=== PATIENT | male | born 1955 | race Asian ===

== ENCOUNTER 2017-03-29 15:56 | Emergency (ER) | payer OTHER ==
[2017-03-29 16:01] VITALS: PULSE 87; TEMP 98; BMI 22.8
--- NOTE | 2017-03-29 16:13 | PDOC ---
History of Present Illness - General History Source: Patient Exam Limitations: No Limitations - History of Present Illness Initial Comments: 03/29/17 16:57 Patient is a 61 year old male with a significant past medical history of who presents the ED s/p fall today 1 hours before ED arrival. Patient reports cutting grass today and falling in the yard onto right arm causing immediate pain. Patient reports taking no medication for pain after initial fall. Patient was able to move arm and put ice onto tricep immediately after fall. Denies chest pain, SOB. Denies nausea, vomiting. Denies fever, chills. Denies any other symptoms. Allergies: No allergies Social history: None Surgical history: None PMD: None <Julio Castillo - Last Filed: 03/29/17 18:38> <Keturah Pizarro - Last Filed: 03/30/17 11:58> - General Chief Complaint: Pain, Acute Stated Complaint: right arm pain Time Seen by Provider: 03/29/17 16:02 Past History <Julio Castillo - Last Filed: 03/29/17 18:38> - Past Medical History Anemia: Yes Asthma: No Cancer: No Cardiac Disorders: No CVA: No COPD: No CHF: No Dementia: No Diabetes: No GI Disorders: No Disorders: No HTN: No Hypercholesterolemia: Yes Liver Disease: No Seizures: No Thyroid Disease: No - Surgical History Abdominal Surgery: No Appendectomy: No Cardiac Surgery: No Cholecystectomy: No Lung Surgery: No Neurologic Surgery: No Orthopedic Surgery: No - Suicide/Smoking/Psychosocial Hx Smoking History: Never smoked Have you smoked in the past 12 months: No Hx Alcohol Use: No Drug/Substance Use Hx: No Substance Use Type: None Hx Substance Use Treatment: No <Keturah Pizarro - Last Filed: 03/30/17 11:58> - Past Medical History Allergies/Adverse Reactions: Allergies Allergy/AdvReac Type Severity Reaction Status Date / Time No Known Allergies Allergy Verified 03/29/17 15:57 Home Medications: Ambulatory Orders Ibuprofen [Motrin -] 600 mg PO TID PRN #21 tablet 03/29/17 Oxycodone HCl/Acetaminophen [Percocet 5-325 mg Tablet] 1 tab PO Q6H PRN #12 tablet MDD 4 tabs 03/29/17 Review of Systems - Review of Systems Able to Perform ROS?: Yes Comments:: 03/29/17 16:57 GENERAL/CONSTITUTIONAL: No fever or chills. No weakness. HEAD, EYES, EARS, NOSE AND THROAT: No change in vision. No ear pain or discharge. No sore throat. MUSCULOSKELETAL: + Right tricep pain. No joint or muscle swelling or pain. No neck or back pain. SKIN: No rash NEUROLOGIC: No headache, vertigo, loss of consciousness, or change in strength/ sensation. ENDOCRINE: No increased thirst. No abnormal weight change. HEMATOLOGIC/LYMPHATIC: No anemia, easy bleeding, or history of blood clots. ALLERGIC/IMMUNOLOGIC: No hives or skin allergy. 03/29/17 18:38 All Other Systems: Reviewed and Negative <Julio Castillo - Last Filed: 03/29/17 18:38> *Physical Exam - Vital Signs Last Vital Signs Temp Pulse Resp BP Pulse Ox 98 F 87 17 157/117 100 03/29/17 15:57 03/29/17 15:57 03/29/17 15:57 03/29/17 15:57 03/29/17 15:57 <Julio Castillo - Last Filed: 03/29/17 18:38> - Vital Signs Last Vital Signs Temp Pulse Resp BP Pulse Ox 98 F 87 17 157/117 100 03/29/17 15:57 03/29/17 15:57 03/29/17 15:57 03/29/17 15:57 03/29/17 15:57 - Physical Exam Comments: GENERAL: Awake, alert, and fully oriented, in no acute distress HEAD: No signs of trauma EXTREMITIES: R upper arm with deformity, soft tissue tenderness to area of distal humerus. FROM to the elbow and shoulder on the R. Remainder of extremities with normal range of motion, no edema. No clubbing or cyanosis. No cords, erythema, or tenderness NEUROLOGICAL: Cranial nerves II through XII grossly intact. Normal speech, normal gait SKIN: Warm, Dry, normal turgor, no rashes or lesions noted. <Keturah Pizarro - Last Filed: 03/30/17 11:58> Procedures - Splinting Sling: Yes <Keturah Pizarro - Last Filed: 03/30/17 11:58> ED Treatment Course - Medications Given in the ED: ED Medications Discontinued Medications Generic Name Dose Route Start Last Admin Trade Name Clementeq PRN Reason Stop Dose Admin Oxycodone/Acetaminophen 1 combo 03/29/17 16:14 03/29/17 16:19 Percocet 5/325 - PO 03/29/17 16:15 1 combo ONCE ONE Administration <Julio Castillo - Last Filed: 03/29/17 18:38> *DC/Admit/Observation/Transfer - Attestations Scribe Attestion: 03/29/17 16:58 Documentation prepared by Julio Castillo, acting as medical technologist hematology for Keturah Pizarro MD. <Julio Castillo - Last Filed: 03/29/17 18:38> - Discharge Dispostion Admit: No <Keturah Pizarro - Last Filed: 03/30/17 11:58> Diagnosis at time of Disposition: Sprain of right upper arm Qualifiers: Encounter type: initial encounter Qualified Code(s): S43.401A - Unspecified sprain of right shoulder joint, initial encounter - Discharge Dispostion Disposition: HOME Condition at time of disposition: Improved - Prescriptions Prescriptions: Ibuprofen [Motrin -] 600 mg PO TID PRN #21 tablet PRN Reason: Pain Oxycodone HCl/Acetaminophen [Percocet 5-325 mg Tablet] 1 tab PO Q6H PRN #12 tablet MDD 4 tabs PRN Reason: Severe Pain - Patient Instructions Printed Discharge Instructions: How to Use a Sling, DI for Elbow Sprain - Post Discharge Activity Work/School Note: Back to Work
[2017-03-29 17:00] VITALS: BP 160/107
== END 2017-03-29 17:04 | disposition home or self-care (01) ==
LOC: FER 15:56
DX: S43.401A Unspecified sprain of right shoulder joint, initial encounter (principal); W18.39XA Other fall on same level, initial encounter; Y93.H2 Activity, gardening and landscaping; Y92.017 Garden or yard in single-family (private) house as the place of occurrence of the external cause; D64.9 Anemia, unspecified; E78.00 Pure hypercholesterolemia, unspecified
CPT/HCPCS: 73030-TC-RT; 73060-TC-RT; 99282-25